=== PATIENT | male | born 1940 | race Caucasian/White ===

== ENCOUNTER 2016-08-21 09:07 | Emergency (ER) | payer MEDICARE, MEDICAID ==
[2016-08-21 10:21] LABS: ALT (SGPT) 10 U/L (0-55); AST (SGOT) 13 U/L (5-34); Alkaline Phosphatase 50 U/L (40-150); Anion Gap 12 mmol/L (10-20); BUN (Urea Nitrogen) 10 mg/dL (8.4-25.7); Bilirubin, Total 1.1 mg/dL (0.2-1.2); Calc. Creatinine Clearance 0 mL/min (70-130); Calcium 8.9 mg/dL (7.8-10.44); Carbon Dioxide 25 mmol/L (23-31); Chloride 102 mmol/L (98-107); Estimated GFR-MDRD 68; Globulin 3.1 g/dL (2.4-3.5); Protein, Total 6.2 g/dL (5.8-8.1)
--- NOTE | 2016-08-21 10:35 | RAD ---
2 VIEWS OF CHEST: Date: 08/21/16 COMPARISON: None. HISTORY: Cough and sore throat for 8 days. FINDINGS: Small nodular densities are noted within the mid hemithoraces bilaterally, suggesting calcification, probably on the basis of calcified pleural plaque formation and/or prior granulomatous disease. The re is no pneumothorax, large volume pleural effusion, focal consolidation, or alveolar edema. On the lateral examination, there is blunting of the costophrenic angle on the left which may signify left pleural thickening or pleural scar. IMPRESSION: No focal consolidation or alveolar edema. Findings suggesting calcified pleural plaque formation and /or prior granulomatous disease. Findings could be better assessed via nonemergent CT. No acute find ings. POS: [facility]
[2016-08-21 10:36] LABS: Hematocrit 45.4 % (42.0-52.0); Mean Platelet Volume 6.6 fL (7.4-10.4); Red Blood Cell (RBC) Count 5.27 mill/uL (4.70-6.10); White Blood Cell (WBC) Count 7.4 thou/uL (4.8-10.8)
[2016-08-21 10:44] LABS: Band 3 % (5-11); Neutrophil 74 % (42-75); Reactive Lymphocytes 2 % (0-10)
[2016-08-21] MEDS ORDERED: Enoxaparin Sodium 100 MG/ML SYRINGE ONE (11:20)
[2016-08-21] MEDS ORDERED: Metoprolol Tartrate 25 MG TAB ONE (11:26)
--- NOTE | 2016-08-21 12:46 | ERRECORD ---
[facility] EMERGENCY RECORD HPI FLU-LIKE SYNDROME (10:42 PMYE) CHIEF COMPLAINT: Patient presents for evaluation of body aches, Patient presents for evaluation of fatigue, Patient presents for evaluation of fever. HISTORIAN: History provided by patient. LOCATION: Symptoms are generalized. SEVERITY: Maximum severity of symptoms mild, Currently symptoms are moderate. TIME COURSE: Gradual onset of symptoms, Symptoms are worsening. ASSOCIATED WITH: Associated with cough, Associated with headache, 76 y/o Male w/ fever, cough,congestion, myalgia, arthralgia x 7 days. EXACERBATED BY: Patient's condition exacerbated by nothing. RELIEVED BY: Patient's condition relieved by nothing. ROS (10:42 PMYE) CONSTITUTIONAL: Historian denies chills, reports fatigue, reports fever. EYES: Negative eye review of systems, Historian denies eye pain, denies eye redness. ENT: Negative ears, nose, throat review of systems, Historian denies dysphasia, denies otalgia, denies sore throat. CARDIOVASCULAR: Negative cardiovascular review of systems, Historian denies chest pain, denies dyspnea on exertion, denies syncope. RESPIRATORY: Historian reports cough, denies shortness of breath, reports wheezing. GI: Negative gastrointestinal review of systems, Historian denies abdominal pain, denies nausea, denies vomiting. MUSCULOSKELETAL: Historian reports myalgias, denies neck pain. SKIN: Negative skin review of systems, Historian denies rash. NEUROLOGIC: Negative neurologic review of systems, Historian denies confusion, denies headache, denies paresthesias. PSYCHIATRIC: Negative psychiatric review of systems, Historian denies alcohol abuse, denies drug abuse, denies homicidal ideation, denies suicidal ideation. PAST MEDICAL HISTORY (:25 JPAR) MEDICAL HISTORY: Notes: Chronic back issues, SEASONAL ALLERGIES, Flu vaccine not up to date, Tetanus immunization up to date, Pneumococcal vaccine up to date, Past medical history includes history of diabetes, history of hypertension. which has been treated. MALE SURGICAL HISTORY: BACK SURGERY, lAMINECTOMY. SOCIAL HISTORY: Patient denies alcohol use, Patient denies drug use, Patient is a former tobacco user, smoked cigars, Patient quit smoking more than 10 years ago. KNOWN ALLERGIES &a-1R&a+25V*p+0X*p0672O*c202B*c15G*c2P*p-0X&a-25V&a+1R Name: Luther Corral : 1940 M76 MedRec: [id number] AcctNum: [id number] Prepared: SunAug 21, 2016 18:07 by Interface Page 1 of 3 pMD [facility] EMERGENCY RECORD No Known Drug Allergies CURRENT MEDICATIONS meloxicam: TABLET : Strength - 15 mg : ORAL Patient Dose: 1/2 tab(s) Oral 2 times a day. (09:17 JPAR) Roscoe: TABLET : Strength - 10 mg-325 mg : ORAL Patient Dose: 1 tab(s) Oral once a day. (09:18 JPAR) NIFEdipine: CAPSULE : Strength - 10 mg : ORAL Patient Dose: 1 cap(s).unsure of dosage. (09:19 JPAR) lisinopril: TABLET : Strength - 30 mg : ORAL Patient Dose: 1 tab(s) Oral once a day. (09:20 JPAR) metFORMIN: TABLET : Strength - 500 mg : ORAL Patient Dose: 1 tab(s) Oral 2 times a day. (09:20 JPAR) Aspir-81: TABLET, DELAYED RELEASE (ENTERIC COATED) : Strength - 81 mg : ORAL Patient Dose: 1 tab(s) Oral once a day. (09:21 JPAR) loratadine: TABLET : Strength - 10 mg : ORAL Patient Dose: 1 tab(s) Oral once a day. (09:21 JPAR) VITAL SIGNS VITAL SIGNS: Resp: 18 (Non-Labored), Temp: 97.7 (Oral), Time: 08/21/2016 09:15. (09:15 JPAR) BP: 121/70, Pulse: 89, Resp: 18, Pain: 5, O2 sat: 94 on Room Air, Time: 08/21/2016 09:21. (09:21 JPAR) BP: 131/73, Pulse: 91, Resp: 18 (Non-Labored), Pain: 3, O2 sat: 94 on Room Air, Time: 08/21/2016 10:33. (10:33 JPAR) BP: 134/79, Pulse: 89, Resp: 18 (Non-Labored), Pain: 3, O2 sat: 95 on Room Air, Time: 08/21/2016 11:30. (11:30 JPAR) BP: 131/68, Pulse: 85, Resp: 19 (Non-Labored), Pain: 3, O2 sat: 94 on Room Air, Time: 08/21/2016 12:09. (12:09 JPAR) PHYSICAL EXAM (10:45 PMYE) CONSTITUTIONAL: Vital signs reviewed, Patient afebrile, Pulse normal, Blood pressure normal, Respiratory rate normal. HEAD: Head exam normal, Head exam included findings of head atraumatic, normocephalic. EYES: Eye exam normal, Eye exam included findings of eyelids normal to inspection, Pupils equally round and reactive to light, Extraocular muscles intact. ENT: ENT exam normal, Pharynx exam normal, Uvula exam normal, Tonsil exam normal. NECK: Neck exam normal, Neck exam included findings of normal range of motion, Trachea midline. RESPIRATORY CHEST: Respiratory and chest exam normal, No rales, &a-1R&a+25V*p+0X*[id number]*c202B*c15G*c2P*p-0X&a-25V&a+1R Name: Luther Corral : 1940 M76 MedRec: [id number] AcctNum: [id number] Prepared: SunAug 21, 2016 18:07 by Interface Page 2 of 3 pMD [facility] EMERGENCY RECORD No rhonchi, upper resp congestion, mild exp wheeze. CARDIOVASCULAR: Cardiovascular assessment normal, Cardiovascular exam included findings of heart rate regular rate and rhythm, Heart sounds normal. ABDOMEN MALE: Abdominal exam normal, Abdominal exam included findings of abdomen nontender, Bowel sounds normal. BACK: Back exam normal. NEURO: Neuro exam normal, Neuro exam findings include patient oriented to person, place and time, Geraldo coma scale 15, Speech normal. SKIN: Skin exam included findings of skin warm, dry, and normal in color. PSYCHIATRIC: Psychiatric exam included findings of patient oriented to person place and time, Normal affect. MEDICATION ADMINISTRATION SUMMARY Drug Name: Lopressor oral, Dose Ordered: 25 mg, Route: Oral, Status: Given, Time: 11:27 08/21/2016, Drug Name: Lovenox, Dose Ordered: 100 mg, Route: Subcutaneous, Status: Given, Time: 11:23 08/21/2016, Drug Name: DuoNeb, Dose Ordered: 3 mL, Route: Nebulize, Status: Given, Time: 09:35 08/21/2016, Detailed record available in Medication Service section. DOCTOR NOTES TEXT: Pt influenza +. 7 days of symptoms precludes Tamiflu. Will tx symptomatically and pt will f/u W PCP. (10:46 PMYE) EKG returns A-fib. Per pt this is a new dx. Will provide Lovonox and PO Lopressor. Pt will now be transferred to [place] for additional mgmt. (11:24 PMYE) Pt w/ a fib w/ rate is less then 100. Will provide small dose of Lopressor and w/ hold any rate control ggt unless pt becomes tachycardic. (11:40 PMYE) PROBLEM LIST No recorded problems DIAGNOSIS (11:20 PMYE) FINAL: PRIMARY: influenza, ADDITIONAL: UNSPECIFIED ATRIAL FIBRILLATION. DISPOSITION PATIENT: Disposition Type: Discharge, Disposition: *Discharge Home. (10:47 PMYE) Disposition Type: Transfer, Disposition: Transfer to [facility]. (11:20 PMYE) Patient left the department. (12:43 JPXAVIER) [place]: SHENAAR=CHANEL Delgadillo Jason PMYE=DO Ceja Paul &a-1R&a+25V*p+0X*f2097H*c202B*c15G*c2P*p-0X&a-25V&a+1R Name: Luther Corral : 1940 M76 MedRec: [id number] AcctNum: [id number] Prepared: SunAug 21, 2016 18:07 by Interface Page 3 of 3 pMD MTDD
--- NOTE | 2016-08-21 12:53 | PICIS ---
[facility] EMERGENCY RECORD TRIAGE (09:16 JPAR) TRIAGE NOTES: Cough and sore throat for 8 days. (09:16 JPAR) PATIENT: AGE: 76, GENDER: male, : Sun1940, TIME OF GREET: SunAug 21, 2016 09:08, PREFERRED LANGUAGE: Citizen Of [place], ETHNICITY: Not or , ECODE BILLING MAP: [facility], SSN: [id number], Zip Code: [address], KG WEIGHT: 99.79, PHONE: , , , PERSON ID: [id number], PCP: MD Hernandez Katherine. (09:16 JPAR) NAME: Luther Corral (10:25) COMPLAINT: PNEUMONIA OR SOMETHING. (09:16 JPAR) ADMISSION: URGENCY: 3 Urgent, ADMISSION SOURCE: Home, TRANSPORT: CAR, BED: TRIAGE. (09:16 JPAR) ASSESSMENT: Assessment: RUN DOWN, COUGH AND CONGESTION, SORE THROAT 8 DAYS, Symptoms began 8 DAYS, Symptoms began greater than 1 week ago. (09:25 JPAR) SIRS SCORING: Heart Rate 55-109 (0), Temp range 96.8-101.1 (0), respiratory rate 12-24 (0), Mental Status altered: no (0), Infection or Suspected Infection: No. (09:25 JPAR) TRIAGE SCREENING: Patient denies suicidal ideation, Patient denies presence of domestic violence. (09:25 JPAR) PROVIDERS: TRIAGE NURSE: Khai Delgadillo RN. (09:16 JPAR) VITAL SIGNS: Resp 18, (Non-Labored), Temp 97.7, (Oral), Time 08/21/2016 09:15. (09:15 JPAR) BP 121/70, Pulse 89, Resp 18, Pain 5, O2 Sat 94, on Room Air, Time 08/21/2016 09:21. (09:21 JPAR) KNOWN ALLERGIES No Known Drug Allergies CURRENT MEDICATIONS meloxicam: TABLET : Strength - 15 mg : ORAL Patient Dose: 1/2 tab(s) Oral 2 times a day. (09:17 JPAR) [place]: TABLET : Strength - 10 mg-325 mg : ORAL Patient Dose: 1 tab(s) Oral once a day. (09:18 JPAR) NIFEdipine: CAPSULE : Strength - 10 mg : ORAL Patient Dose: 1 cap(s).unsure of dosage. (09:19 JPAR) lisinopril: TABLET : Strength - 30 mg : ORAL Patient Dose: 1 tab(s) Oral once a day. (09:20 JPAR) metFORMIN: TABLET : Strength - 500 mg : ORAL Patient Dose: 1 tab(s) Oral 2 times a day. (09:20 JPAR) Aspir-81: TABLET, DELAYED RELEASE (ENTERIC COATED) : Strength - 81 mg : ORAL Patient Dose: 1 tab(s) Oral once a day. (09:21 JPAR) &a-1R&a+25V*p+0X*q3230H*c202B*c15G*c2P*p-0X&a-25V&a+1R Name: Luther Corral : 1940 M76 MedRec: [id number] AcctNum: [id number] Prepared: SunAug 21, 2016 18:14 by Interface Page 1 of 10 pMD [facility] EMERG[facility] RECORD loratadine: TABLET : Strength - 10 mg : ORAL Patient Dose: 1 tab(s) Oral once a day. (09:21 JPAR) VITAL SIGNS VITAL SIGNS: Resp: 18 (Non-Labored), Temp: 97.7 (Oral), Time: 08/21/2016 09:15. (09:15 JPAR) BP: 121/70, Pulse: 89, Resp: 18, Pain: 5, O2 sat: 94 on Room Air, Time: 08/21/2016 09:21. (09:21 JPAR) BP: 131/73, Pulse: 91, Resp: 18 (Non-Labored), Pain: 3, O2 sat: 94 on Room Air, Time: 08/21/2016 10:33. (10:33 JPAR) BP: 134/79, Pulse: 89, Resp: 18 (Non-Labored), Pain: 3, O2 sat: 95 on Room Air, Time: 08/21/2016 11:30. (11:30 JPAR) BP: 131/68, Pulse: 85, Resp: 19 (Non-Labored), Pain: 3, O2 sat: 94 on Room Air, Time: 08/21/2016 12:09. (12:09 JPAR) NURSING ASSESSMENT: RESPIRATORY /CHEST CONSTITUTIONAL: Patient arrives ambulatory, Unsteady gait, Assistance to cart, Pt unsteady on his feet, History obtained from patient, Patient appears, Patient cooperative, Patient alert, Oriented to person, place and time, Skin warm, Skin dry, Skin normal in color, Mucous membranes pink, Mucous membranes moist, Patient complains of Cough, Sore throat, decreased appetite, 8-9 days onset. (09:17 JPAR) PAIN: aching pain, to the left chest, to the right chest, chest wall when coughing, has been coughing for 8-9 days, Onset of pain 3-4 days, was coughing for over a week, on a scale 0-10 patient rates pain as 5, chest wall and sore throat pain. (09:17 JPAR) RESPIRATORY/CHEST: Lungs auscultated, Breath sounds with wheezing, posteriorally, to bilateral upper lobes, to bilateral lower lobes, primarily in bases w/ pleural rubbing, Respiratory assessment findings include respiratory effort easy, Respirations regular, Conversing normally, Neck and chest exam findings include trachea midline, Chest expansion equal, Chest movement symmetrical, no signs of distress, no retractions noted, no cyanosis, no jugular vein distension, no tenderness to palpation, no crepitus noted, no subcutaneous emphysema noted, no deformity noted, Associated with cough, dry, non-productive, no associated fever. (09:17 JPAR) Lungs auscultated, Breath sounds diminished, to bilateral upper lobes, to bilateral lower lobes, Respiratory assessment findings include respiratory effort easy, Respirations regular, Conversing normally, Neck and chest exam findings include trachea midline, Chest expansion equal, Chest movement symmetrical, no signs of distress, no retractions noted, no cyanosis, no jugular vein distension, no tenderness to palpation, no crepitus noted, no subcutaneous emphysema noted, no deformity noted, Associated with cough, dry, non-productive, no &a-1R&a+25V*p+0X*z7992H*c202B*c15G*c2P*p-0X&a-25V&a+1R Name: Luther Corral : 1940 [address]: [id number] AcctNum: [id number] Prepared: SunAug 21, 2016 18:14 by Interface Page 2 of 10 pMD [facility] EMERG[facility] RECORD associated fever, Pleural rubbing improved following DuoNeb. (11:30 JPAR) SAFETY: Side rails up, Cart/Stretcher in lowest position, Family at bedside, Call light within reach, Hospital ID band on. (09:17 JPAR) NURSING ASSESSMENT: SKIN (11:58 JPAR) SKIN: Skin assessment findings include skin warm, Skin dry, Skin normal in color. PHILL SCALE: (4) Sensory perception has no impairment, (4) Skin is rarely moist, (3) Patient walks occasionally, (3) Slightly limited mobility, (3) Adequate nutrition, (3) Patient has no apparent problem moving, Phill Risk Total: 20. SAFETY: Side rails up, Cart/Stretcher in lowest position, Family at bedside, Call light within reach, Hospital ID band on. NURSING PROCEDURE: EKG CHART PATIENT IDENTIFIER: Patient actively involved in identification process, Patient's identity verified by patient stating name, Patient's identity verified by patient stating date, Patient's identity verified by hospital ID bracelet, Patient's identity verified by family member. (09:43 JPAR) Patient actively involved in identification process, Patient's identity verified by patient stating name, Patient's identity verified by hospital ID bracelet. (10:57 JPAR) EKG: EKG indicated for Cough and congestion, 12 lead EKG performed on the left chest, done by Khai MACARIO, first EKG. (09:43 JPAR) EKG indicated for Repeat per ERMD. (10:57 JPAR) Notes: 9:43 a-fib 87 bpm LAD, LAFB non specific st / t wave changes 10:57 A-fib w/ PVC LAD LAFB non specific st changes. (11:22 PMYE) FOLLOW-UP: After procedure, EKG for interpretation given to Dr. Ceja. (09:43 JPAR) SAFETY: Side rails up, Cart/Stretcher in lowest position, Family at bedside, Call light within reach, Hospital ID band on. (09:43 JPAR) Side rails up, Cart/Stretcher in lowest position, Family at bedside, Call light within reach, Hospital ID band on. (10:57 JPAR) NURSING PROCEDURE: ENT (09:40 [facility]) ENT: Nasal swab collected, labeled in the presence of the patient and sent to lab for testing of, influenza A, influenza B, flu, collected by CHANEL Mckenzie. SAFETY: Side rails up, Cart/Stretcher in lowest position, Family at bedside, Call light within reach, Hospital ID band on. NURSING PROCEDURE: IV (11:16 [facility]) IV SITE 1: IV established, to the left antecubital, using a 20 &a-1R&a+25V*p+0X*a2892Y*c202B*c15G*c2P*p-0X&a-25V&a+1R Name: Luther Corral : 1940 M76 MedRec: [id number] AcctNum: [id number] Prepared: SunAug 21, 2016 18:14 by Interface Page 3 of 10 pMD [facility] EM[facility]GENC[facility] RECORD gauge catheter, in one attempt, IV site prepped with chloraprep, Saline lock established, Flushed with normal saline (mls): 10, Notes: MARYANN established by CHANEL Mckenzie with use of IV catheter and start kit. SL established with no swelling, drainage, or redness. Secured with clear Tegaderm. SAFETY: Side rails up, Cart/Stretcher in lowest position, Family at bedside, Call light within reach, Hospital ID band on. NURSING PROCEDURE: LAB DRAW (09:36 [facility]) PATIENT IDENTIFIER: Patient actively involved in identification process, Patient's identity verified by patient stating name, Patient's identity verified by hospital ID bracelet. LAB DRAW: Initial lab draw performed, by venipuncture, from right hand, in one attempt, Lab specimens labeled in the presence of the patient and sent to lab. FOLLOW-UP: After procedure, dressing applied to site. SAFETY: Side rails up, Cart/Stretcher in lowest position, Family at bedside, Call light within reach, Hospital ID band on. NURSING PROCEDURE: NURSE NOTES NURSES NOTES: Notes: Pt back from X-Ray via cart. (09:54 JPAR) Patient in no apparent distress, Notes: Pt to restroom via wheelchair, pt put in no slip socks. (11:35 JPAR) NURSING PROCEDURE: RESPIRATORY INTERVENTIONS (09:35 JPAR) PATIENT IDENTIFIER: Patient actively involved in identification process, Patient's identity verified by patient stating name, Patient's identity verified by patient stating date, Patient's identity verified by hospital ID bracelet, Patient's identity verified by family member. RESPIRATORY INTERVENTIONS: Respiratory interventions indicated for wheezing, Pre-intervention breath sounds not clear, to bilateral upper lobes, to bilateral lower lobes, Pre-intervention breath sounds with wheezing, anteriorally, posteriorally, to bilateral upper lobes, to bilateral lower lobes, Pre-intervention oxygen saturation 94%, by adult/pediatric oxisensor, single pulse oximetry reading, Patient given ALBUTEROL with ATROVENT, Single dose nebulizer. SAFETY: Side rails up, Cart/Stretcher in lowest position, Family at bedside, Call light within reach, Hospital ID band on. NURSING PROCEDURE: TRANSFER (12:37 JPAR) TRANSFER: Reason for transfer need for specialized care, Diagnosis: New Onset A-Fib, Accepting institution: [facility], Accepting physician: Gwendolyn, Referring physician: Marcial, Transported by urgent ambulance, accompanied by emergency medical services personnel, Report called to receiving facility, Leslie, Provided opportunity to answer questions, Summary of Care printed, Copy of patient record &a-1R&a+25V*p+0X*q0535Y*c202B*c15G*c2P*p-0X&a-25V&a+1R Name: Luther Corral : 1940 M76 MedRec: [id number] AcctNum: [id number] Prepared: SunAug 21, 2016 18:14 by Interface Page 4 of 10 pMD [facility] EMERGENC[facility] RECORD prepared for receiving facility, Copy of diagnostic studies, Status of patient's valuables documented on chart, Patient consent for transfer signed, Family member contacted, At bedside. BELONGINGS: Belongings and valuables with patient at time of discharge include:, Belongings sent home with family member, Valuables sent home with family, Notes: Wallet and keys sent home with family. 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 SAFETY: Side rails up, Cart/Stretcher in lowest position, Call light within reach, Hospital ID band on. ORDER DETAILS Order Name: CBC with Differential, Status: Active, Time: 09:32 08/21/2016, User: RUPINDER, - Ordered for: DO Ceja Paul, - Entered by: DO Ceja Paul - [facility] Aug 21, 2016 09:32, - Quantity: 1, Order Name: Comprehensive Metabolic Panel, Status: Active, Time: 09:32 08/21/2016, User: RUPINDER, - Ordered for: DO Ceja Paul, - Entered by: DO Ceja Paul [facility] Aug 21, 2016 09:32, - Quantity: 1, Order Name: EKG 12 Lead in Emergency Room, Status: Active, Time: 10:53 08/21/2016, User: ARLETH, - Ordered for: DO Ceja Paul, - Entered by: CHANEL Delgadillo, [facility] Aug 21, 2016 10:53, - Quantity: 1, Order Name: EKG 12 Lead in Emergency Room, Status: Active, Time: 09:32 08/21/2016, User: RUPINDER, - Ordered for: DO Ceja Paul, - Entered by: DO Ceja Paul [facility] Aug 21, 2016 09:32, - Quantity: 1, Order Name: ERRT * Smal Vol Neb Initial Trmt, Status: Active, Time: 09:47 08/21/2016, User: ARLETH, - Ordered for: DO Ceja Paul, - Entered by: CHANEL Delgadillo, [facility] Aug 21, 2016 09:47, - Quantity: 1, Order Name: Influenza A&B Ag Screen, Status: Active, Time: 09:32 08/21/2016, User: RUPINDER, - Ordered for: DO Ceja Paul, - Entered by: DO Ceja Paul [facility] Aug 21, 2016 09:32, - Quantity: 1, Order Name: SALINE LOCK, Status: Done, Time: 11:16 08/21/2016, User: JULIO CESAR, - Ordered for: DO Ceja Paul, - Entered by: CHANEL Vance, [facility] Aug 21, 2016 11:16, - Quantity: 1, &a-1R&a+25V*p+0X*a7357F*c202B*c15G*c2P*p-0X&a-25V&a+1R Name: Luther Corral : 1940 M76 MedRec: [id number] AcctNum: [id number] Prepared: SunAug 21, 2016 18:14 by Interface Page 5 of 10 D [facility] EMERGENC[facility] RECORD Order Name: XR Chest Pa & Lat STANDARD, Status: Active, Time: 09:32 08/21/2016, User: PMYE, - Ordered for: DO Ceja Paul, - Entered by: DO Ceja Paul - SunAug 21, 2016 09:32, - Quantity: 1. MEDICATION ADMINISTRATION SUMMARY Drug Name: Lopressor oral, Dose Ordered: 25 mg, Route: Oral, Status: Given, Time: 11:27 08/21/2016, Drug Name: Lovenox, Dose Ordered: 100 mg, Route: Subcutaneous, Status: Given, Time: 11:23 08/21/2016, Drug Name: DuoNeb, Dose Ordered: 3 mL, Route: Nebulize, Status: Given, Time: 09:35 08/21/2016, Detailed record available in Medication Service section. MEDICATION SERVICE DuoNeb: Order: DuoNeb (ipratropium bromide/albuterol sulfate) - Dose: 3 mL : Nebulize Schedule: Now Ordered by: Clifton Ceja DO Entered by: Clifton Ceja DO SunAug 21, 2016 09:33 Documented as given by: Magaly Vance RN SunAug 21, 2016 09:35 Patient, Medication, Dose, Route and Time verified prior to administration. Amount given: 3 ml, Site: Medication administered via Hand-held nebulizer, Correct patient, time, route, dose and medication confirmed prior to administration, Patient advised of actions and side-effects prior to administration, Allergies confirmed and medications reviewed prior to administration, Patient tolerated procedure well, Administered by CHANEL Ridley, Patient in position of comfort, Side rails up, Cart in lowest position, Family at bedside. : Follow Up : Response assessment performed, No signs or symptoms of allergic reaction noted, Decreased symptoms, Decreased respiratory effort, Site inspection shows, No swelling at administration site, No drainage at administration site, No bleeding at site, No bruising noted at site, Advised not to ambulate without assistance, Patient in position of comfort, Side rails up, Cart in lowest position, Family at bedside. (09:50 JPAR) Lopressor oral: Order: Lopressor oral (metoprolol tartrate) - Dose: 25 mg : Oral Ordered by: Clifton Ceja DO Entered by: Clifton Ceja DO SunAug 21, 2016 11:21 , Acknowledged by: Khai Delgadillo RN SunAug 21, 2016 11:26 Documented as given by: Khai Delgadillo RN SunAug 21, 2016 11:27 Patient, Medication, Dose, Route and Time verified prior to administration. Patient appears Awake and alert- acceptable, Correct patient, time, route, dose and medication confirmed prior to administration, Patient advised of actions and side-effects prior to administration, &a-1R&a+25V*p+0X*d3430A*c202B*c15G*c2P*p-0X&a-25V&a+1R Name: Luther Corral : 1940 M76 MedRec: [id number] AcctNum: [id number] Prepared: SunAug 21, 2016 18:14 by Interface Page 6 of 10 pMD [facility] EMERGENC[facility] RECORD Allergies confirmed and medications reviewed prior to administration, Patient in position of comfort, Side rails up, Cart in lowest position, Family at bedside, Call light in reach. Lovenox: Order: Lovenox (enoxaparin sodium) - Dose: 100 mg : Subcutaneous Ordered by: Clifton Ceja DO Entered by: Clifton Ceja DO SunAug 21, 2016 11:19 , Acknowledged by: Khai Delgadillo RN SunAug 21, 2016 11:19 Documented as given by: Khai Delgadillo RN SunAug 21, 2016 11:23 Patient, Medication, Dose, Route and Time verified prior to administration. Medication administered to left abdomen, Correct patient, time, route, dose and medication confirmed prior to administration, Patient advised of actions and side-effects prior to administration, Allergies confirmed and medications reviewed prior to administration, Advised not to ambulate without assistance, Patient in position of comfort, Side rails up, Cart in lowest position, Family at bedside, Call light in reach. HPI FLU-LIKE SYNDROME (10:42 PMYE) CHIEF COMPLAINT: Patient presents for evaluation of body aches, Patient presents for evaluation of fatigue, Patient presents for evaluation of fever. HISTORIAN: History provided by patient. LOCATION: Symptoms are generalized. SEVERITY: Maximum severity of symptoms mild, Currently symptoms are moderate. TIME COURSE: Gradual onset of symptoms, Symptoms are worsening. ASSOCIATED WITH: Associated with cough, Associated with headache, 76 y/o Male w/ fever, cough,congestion, myalgia, arthralgia x 7 days. EXACERBATED BY: Patient's condition exacerbated by nothing. RELIEVED BY: Patient's condition relieved by nothing. ROS (10:42 PMYE) CONSTITUTIONAL: Historian denies chills, reports fatigue, reports fever. EYES: Negative eye review of systems, Historian denies eye pain, denies eye redness. ENT: Negative ears, nose, throat review of systems, Historian denies dysphasia, denies otalgia, denies sore throat. CARDIOVASCULAR: Negative cardiovascular review of systems, Historian denies chest pain, denies dyspnea on exertion, denies syncope. RESPIRATORY: Historian reports cough, denies shortness of breath, reports wheezing. GI: Negative gastrointestinal review of systems, Historian denies abdominal pain, denies nausea, denies vomiting. MUSCULOSKELETAL: Historian reports myalgias, denies neck pain. &a-1R&a+25V*p+0X*b7992H*c202B*c15G*c2P*p-0X&a-25V&a+1R Name: Luther Corral : 1940 M76 MedRec: [id number] AcctNum: [id number] Prepared: SunAug 21, 2016 18:14 by Interface Page 7 of 10 pMD [facility] EMERGENC[facility] RECORD SKIN: Negative skin review of systems, Historian denies rash. NEUROLOGIC: Negative neurologic review of systems, Historian denies confusion, denies headache, denies paresthesias. PSYCHIATRIC: Negative psychiatric review of systems, Historian denies alcohol abuse, denies drug abuse, denies homicidal ideation, denies suicidal ideation. PAST MEDICAL HISTORY (09:25 JPAR) MEDICAL HISTORY: Notes: Chronic back issues, SEASONAL ALLERGIES, Flu vaccine not up to date, Tetanus immunization up to date, Pneumococcal vaccine up to date, Past medical history includes history of diabetes, history of hypertension. which has been treated. MALE SURGICAL HISTORY: BACK SURGERY, lAMINECTOMY. SOCIAL HISTORY: Patient denies alcohol use, Patient denies drug use, Patient is a former tobacco user, smoked cigars, Patient quit smoking more than 10 years ago. PHYSICAL EXAM (10:45 PMYE) CONSTITUTIONAL: Vital signs reviewed, Patient afebrile, Pulse normal, Blood pressure normal, Respiratory rate normal. HEAD: Head exam normal, Head exam included findings of head atraumatic, normocephalic. EYES: Eye exam normal, Eye exam included findings of eyelids normal to inspection, Pupils equally round and reactive to light, Extraocular muscles intact. ENT: ENT exam normal, Pharynx exam normal, Uvula exam normal, Tonsil exam normal. NECK: Neck exam normal, Neck exam included findings of normal range of motion, Trachea midline. RESPIRATORY CHEST: Respiratory and chest exam normal, No rales, No rhonchi, upper resp congestion, mild exp wheeze. CARDIOVASCULAR: Cardiovascular assessment normal, Cardiovascular exam included findings of heart rate regular rate and rhythm, Heart sounds normal. ABDOMEN MALE: Abdominal exam normal, Abdominal exam included findings of abdomen nontender, Bowel sounds normal. BACK: Back exam normal. NEURO: Neuro exam normal, Neuro exam findings include patient oriented to person, place and time, Geraldo coma scale 15, Speech normal. SKIN: Skin exam included findings of skin warm, dry, and normal in color. PSYCHIATRIC: Psychiatric exam included findings of patient oriented to person place and time, Normal affect. EVENTS TRANSFER: Triage to Emergency Triage. (SunAug 21, 2016 09:16 JPAR) Emergency Triage to Emergency Room -04. (09:21 JPAR) &a-1R&a+25V*p+0X*q5354J*c202B*c15G*c2P*p-0X&a-25V&a+1R Name: Luther Corral Dante : 1940 M76 MedRec: [id number] AcctNum: [id number] Prepared: SunAug 21, 2016 18:14 by Interface Page 8 of 10 pMD [facility] EMERGENC[facility] RECORD Removed from Emergency Emergency Room -04. (12:43 JPAR) DOCTOR NOTES TEXT: Pt influenza +. 7 days of symptoms precludes Tamiflu. Will tx symptomatically and pt will f/u W PCP. (10:46 PMYE) EKG returns A-fib. Per pt this is a new dx. Will provide Lovonox and PO Lopressor. Pt will now be transferred to [place] for additional mgmt. (11:24 PMYE) Pt w/ a fib w/ rate is less then 100. Will provide small dose of Lopressor and w/ hold any rate control ggt unless pt becomes tachycardic. (11:40 PMYE) PROBLEM LIST No recorded problems DIAGNOSIS (11:20 PMYE) FINAL: PRIMARY: influenza, ADDITIONAL: UNSPECIFIED ATRIAL FIBRILLATION. DISPOSITION PATIENT: Disposition Type: Discharge, Disposition: *Discharge Home. (10:47 PMYE) Disposition Type: Transfer, Disposition: Transfer to [facility]. (11:20 PMYE) Patient left the department. (12:43 JPAR) INSTRUCTION (11:21 PMYE) FOLLOWUP: Follow up with Primary Care Physician in 1-2 days. IMAGING EKG 1: Image captured from scanner. (10:58 JPAR) EKG 2: Image captured from scanner. (10:59 JPAR) *MEMORANDUM OF TRANSFER: Image captured from scanner. (11:31 BELE) CONSENTS: Image captured from scanner. (11:34 BELE) *SUPPLY CHARGE SHEET: Image captured from scanner. (11:45 BELE) TRANSFER WORKSHEET: Image captured from scanner. (12:42 JPAR) SBAR: Image captured from scanner. (12:42 JPAR) ADMIN DIGITAL SIGNATURE: CHANEL Delgadillo, Khai. (12:41 JPAR) DO Ceja Paul. (17:59 PMYE) RESULTS (10:46 PMYE) LABORATORY: CBC with Differential Collection DT: SunAug 21, 2016 09:45, White Blood Cell (WBC) Count 7.4 thou/uL, Range (4.8-10.8), Red Blood Cell (RBC) Count 5.27 mill/uL, Range (4.70-6.10), Hemoglobin 14.7 g/dL, Range (14.0-18.0), Hematocrit 45.4 %, Range (42.0-52.0), Mean Corpuscular Volume 86.1 fl, Range (80.0-94.0), &a-1R&a+25V*p+0X*v3732L*c202B*c15G*c2P*p-0X&a-25V&a+1R Name: Luther Corral : 1940 M76 MedRec: [id number] AcctNum: [id number] Prepared: SunAug 21, 2016 18:14 by Interface Page 9 of 10 pMD [facility] EM[facility] RECORD Mean Corpuscular Hemoglobin 28.0 pg, Range (27.0-31.0), Mean Corpuscular HGB CONC 32.5 g/dL, Range (32.0-36.0), RBC Distribution Width 11.6 %, Range (11.5-14.5), Platelet Count 253 thou/uL, Range (130-400), *Mean Platelet Volume 6.6 - L fL, Range (7.4-10.4), Neutrophil 74 %, Range (42-75), *Band 3 - L %, Range (5-11), *Lymphocytes 17 - L %, Range (21-51), Reactive Lymphocytes 2 %, Range (0-10), Monocytes 4 %, Range (0-10), PLT Morphology Comment Appears Adequate , RBC Morphology Normal . [place]: YVONNE=CHANEL Locke, Cesia REINOSO=CHANEL Delgadillo, Khai PMYE=DO Ceja Paul [facility]=CHANEL Vance, Magaly &a-1R&a+25V*p+0X*r5910K*c202B*c15G*c2P*p-0X&a-25V&a+1R Name: Luther Corral : 1940 76 MedRec: [id number] AcctNum: [id number] Prepared: SunAug 21, 2016 18:14 by Interface Page 10 of 10 pMD MTDD
== END 2016-08-21 12:37 | disposition short-term general hospital (02) ==
LOC: NAV ERS 09:07
DX: J11.1 Influenza due to unidentified influenza virus with other respiratory manifestations (principal); I48.91 Unspecified atrial fibrillation; E11.9 Type 2 diabetes mellitus without complications; I10 Essential (primary) hypertension; Z79.899 Other long term (current) drug therapy; Z87.891 Personal history of nicotine dependence; Z79.84 Long term (current) use of oral hypoglycemic drugs; Z79.82 Long term (current) use of aspirin
CPT/HCPCS: 36415; 71020; 80053; 85025; 93005; 94640; 96372; J1650; J7620

== ENCOUNTER 2018-05-01 09:01 | Outpatient (CLI) | payer MEDICARE, MEDICAID ==
[~2018-05-01 09:01] MED LIST: Gadobenate Dimeglumine 529 MG/1 ML (20ML VIAL) ONE
--- NOTE | 2018-05-01 12:19 | CT ---
CT CHEST WITH CONTRAST: Date: 05/01/18 HISTORY: Exposure to asbestos. COMPARISON: Chest radiograph dated 08/21/16. FINDINGS: There are multiple calcified and noncalcified pleural plaques, indicating asbestos-related pleural di sease. No abnormal lung mass. No pneumothorax. No effusion. No focal air space consolidation. There are small mediastinal lymph nodes scattered throughout the right paratracheal, subcarinal, and AP window lymph node stations. No pericardial effusion. Spleen is unremarkable. Incompletely evaluated 1.0 cm mass exophytic interpolar left kidney, for which a CT or MRI renal mass protocol is recommended. There is no acute osseous abnormality. No acute displaced rib fracture. IMPRESSION: 1. Evidence of asbestos-related pleural disease with multiple calcified and noncalcified pleural rachell ques. 2. Likely reactive numerous mediastinal lymph nodes. 3. 1.0 cm mass exophytic interpolar left kidney, incompletely evaluated, although is concerning for malignancy. Dedicated renal protocol CT or MRI is recommended. CODE T. POS: ANDRÉS
== END 2018-05-01 09:02 | disposition home or self-care (01) ==
LOC: NAV CT 09:01
PROVIDERS: ATTEND Internal Medicine
DX: Z77.090 Contact with and (suspected) exposure to asbestos (principal); J92.0 Pleural plaque with presence of asbestos; N28.89 Other specified disorders of kidney and ureter
CPT/HCPCS: 36415; 71260; 82565; A9579

== ENCOUNTER 2018-05-13 08:33 | Outpatient (CLI) | payer MEDICARE, MEDICAID ==
[2018-05-13] MEDS ORDERED: Iopamidol 370 76% 100 ML VIAL ONE (09:00)
--- NOTE | 2018-05-13 10:41 | CT ---
CT ABDOMEN AND PELVIS WITH AND WITHOUT CONTRAST: Date: 05/13/18 HISTORY: Renal mass. COMPARISON: CT chest dated 05/01/18. FINDINGS: The lung bases are clear. There is evidence of asbestos-related pleural disease. No pericardial effusion. Corresponding to the recently described mass in the left kidney on the CT examination is an approxima tely 1.0 cm mass which was 37 Hounsfield units on the precontrast sequence without significant enhanc ement, which may be post and delayed sequence. No definite other solid renal enhancing mass. There are parapelvic cysts left kidney. Too small to characterize hypodensity interpolar right kidney . Pancreas and spleen are unremarkable. Liver is unremarkable, as well as the gallbladder. Aortoiliac c ontour is nonaneurysmal. Small diverticular disease of the sigmoid colon without active current inflammation. The appendix is visualized and is normal. Prostate moderately enlarged. 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 No thoracic spine compression fracture. IMPRESSION: No significant enhancement of the left renal mass measuring approximately 1.0 cm described on the rec ent CT of the chest examination. This may be due to its small size and may be sequelae of a proteinac eous/hemorrhagic cyst. In light of this, a follow-up CT or MRI in 6 month's time is recommended to do cument stability. POS: ANDRÉS
== END 2018-05-13 08:34 | disposition home or self-care (01) ==
LOC: NAV CT 08:33
PROVIDERS: ATTEND Internal Medicine
DX: N28.89 Other specified disorders of kidney and ureter (principal); R93.89 Abnormal findings on diagnostic imaging of other specified body structures
CPT/HCPCS: 74177

== ENCOUNTER 2018-10-29 08:33 | Outpatient (CLI) | payer MEDICARE, MEDICAID ==
[2018-10-29] MEDS ORDERED: Iopamidol 370 76% 100 ML VIAL ONE (09:00)
--- NOTE | 2018-10-29 10:42 | CT ---
[facility] CT WITH AND WITHOUT CONTRAST PELVIC CT WITH AND WITHOUT CONTRAST: HISTORY: Follow-up left renal mass. COMPARISON: 05/13/2018 TECHNIQUE: Abdomen and pelvic CT is performed with and without contrast following urogram protocol. Coronal refo rmatted images are submitted for interpretation FINDINGS: Lung bases: Calcified granulomas. Right anterior pleural-based mass, unchanged measuring 0.9 cm in ma ximum dimension. Liver: Appropriate enhancement. No enhancing masses. Spleen: Appropriate enhancement. Pancreas: Appropriate enhancement. Adrenal glands: Symmetric enhancement. Lymph nodes: No gastrohepatic, retrocrural or periportal lymphadenopathy. Portal vein: Patent. Gallbladder: Unremarkable. Kidneys: Bilaterally no hydronephrosis, nephrolithiasis or perinephric fat stranding. There are a few left parapelvic cysts. Symmetric enhancement of the kidneys. Symmetric excretion. Intra and extraren al collecting system is unremarkable. No calculi or filling defects. 0.6 x 1.1 cm cyst emanating from the midpole of the right kidney, unchanged. Subcentimeter hypodensity in the lower pole of the left kidney, too small to further characterize. Exophytic hypodensity to isodense lesion in the midportion left kidney measuring 1.1 x 1.2 cm. Noncontrast attenuation coefficient of 29 Hounsfield units; veno us attenuation coefficient of 45 cm; delayed attenuation coefficient of 29 Hounsfield units. A comple x cystic lesion is favored. There has been no appreciable change in size. Previously, this lesion josiah sured 1.1 x 1.0 cm. Mesentery: No mass, nephropathy, free air or free fluid Alimentary canal: Limited evaluation due to lack of oral contrast administration. No evidence of rosa l obstruction. The ileocecal junction is normal. Normal caliber appendix. Scattered fecal material in a nondistended/nondilated colon. CT PELVIS: No mass, lymphadenopathy, free air or free fluid. Unremarkable urinary bladder. No lytic or blastic lesions in the osseous structures. Vacuum disc phenomenon in the lumbar spine at multiple levels is n oted. IMPRESSION: 1. Simple cyst in the right kidney. 2. Complex left renal cyst, unchanged. Transcribed Date/Time: 10/29/2018 10:49 AM
== END 2018-10-29 08:34 | disposition home or self-care (01) ==
LOC: NAV CT 08:33
PROVIDERS: ATTEND Internal Medicine
DX: Z01.812 Encounter for preprocedural laboratory examination (principal); N28.89 Other specified disorders of kidney and ureter; R91.8 Other nonspecific abnormal finding of lung field; N28.1 Cyst of kidney, acquired
CPT/HCPCS: 36415; 74178; 82565; Q9967

== ENCOUNTER 2020-08-22 14:16 | Emergency (ER) | payer MEDICARE, MEDICAID ==
[~2020-08-22 14:16] MED LIST changes: -Gadobenate Dimeglumine 529 MG/1 ML (20ML VIAL) ONE; +Iopamidol 370 76% 100 ML VIAL ONE
[2020-08-22] MEDS ORDERED: Sodium Chloride 0.9% 500 ML ONE (14:41)
[2020-08-22 14:50] LABS: INR-International Normal Ratio 1.3; PTT 36.2 sec (22.9-36.1); Prothrombin Time 16.5 sec (12.0-14.7)
[2020-08-22 14:59] LABS: ALT (SGPT) 9 U/L (8-55); AST (SGOT) 16 U/L (5-34); Alcohol Less than 10 mg/dL (Less than 10); Alkaline Phosphatase 80 U/L (40-110); Anion Gap 17 mmol/L (10-20); BUN (Urea Nitrogen) 13 mg/dL (8.4-25.7); Bilirubin, Total 0.6 mg/dL (0.2-1.2); Calc. Creatinine Clearance 0 mL/min (70-130); Calcium 8.7 mg/dL (7.8-10.44); Carbon Dioxide 24 mmol/L (23-31); Chloride 103 mmol/L (98-107); Globulin 2.8 g/dL (2.4-3.5); Glucose 131 mg/dL (83-110); Lipase 68 U/L (8-78); Potassium 4.1 mmol/L (3.5-5.1); Protein, Total 6.8 g/dL (5.8-8.1); Sodium 140 mmol/L (136-145)
[2020-08-22 15:25] LABS: #Basophils 0.1 thou/uL (0.0-0.2); #Lymphocytes 1.7 thou/uL (1.20-3.40); #Monocytes 0.6 thou/uL (0.11-0.59); #Neutrophils 4.7 thou/uL (1.40-6.50); %Basophils 0.8 % (0.0-1.0); %Eosinophils 0.4 % (0.0-10.0); %Monocytes 7.8 % (0.0-10.0); %Neutrophils 67.1 % (42.0-75.0); Hemoglobin 8.7 g/dL (14.0-18.0); Mean Corpuscular HGB CONC 28.3 g/dL (32.0-36.0); Mean Corpuscular Hemoglobin 19.2 pg (27.0-31.0); Mean Corpuscular Volume 67.8 fL (78.0-98.0); Mean Platelet Volume 7.2 fL (7.4-10.4); Platelet Count 291 thou/uL (130-400); RBC Distribution Width 17.3 % (11.5-14.5); Red Blood Cell (RBC) Count 4.52 mill/uL (4.70-6.10)
[2020-08-22 15:27] LABS: Hypochromia SLIGHT = 6-15 cells (100X) (0-5/hpf); MDiff Complete? YES; Microcytosis MODERATE=15-30 cells (100X) (0-5/hpf); Platelet Morphology Comment Appears Adequate; Polychromasia SLIGHT = 2-3 cells (100X) (0-2/hpf)
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
== END 2020-08-22 16:08 | disposition home or self-care (01) ==
LOC: NAV ERS 14:16
DX: S20.212A Contusion of left front wall of thorax, initial encounter (principal); N18.9 Chronic kidney disease, unspecified; D63.1 Anemia in chronic kidney disease; E11.22 Type 2 diabetes mellitus with diabetic chronic kidney disease; M25.512 Pain in left shoulder; I48.91 Unspecified atrial fibrillation; F17.220 Nicotine dependence, chewing tobacco, uncomplicated; Z79.84 Long term (current) use of oral hypoglycemic drugs; Z79.899 Other long term (current) drug therapy; Z79.82 Long term (current) use of aspirin; V53.5XXA Driver of pick-up truck or van injured in collision with car, pick-up truck or van in traffic accident, initial encounter
CPT/HCPCS: 70450; 71260; 72125; 74177; 80053; 80307; 83690; 84484; 85025; 85610; 85730; 93005; 94760; J7030; Q9967